=== PATIENT | female | born 1975 | race Caucasian/White ===

== ENCOUNTER 2018-09-15 19:52 | Emergency (ER) | payer BC, OTHER ==
[~2018-09-15] VITALS: Ht 165.1 cm; Wt 101.2 kg
--- NOTE | 2018-09-15 20:06 | NUR ---
ERMD at bedside for eval
--- NOTE | 2018-09-15 20:13 | NUR ---
Patient ambulated with stable gait. A/Ox4. Patient came for c/o LHand digit 3 pain. Patient reported she was moving furniture and the mattress frame fell down on her finger. Pain 9/10. Patient has sensation in the digit, denies any numbness but reports having more dull of a sensation towards the distal portion of the digit. Opposition of fingers restricted to every digit other than the 3rd digit of the left hand. Patient in bed at lowest position, accompanied by relative.
--- NOTE | 2018-09-15 21:04 | NUR ---
MARIA G contacted for xray result
[2018-09-15] MEDS ORDERED: KETOROLAC TROMETHAMINE 30 MG INJ IM ONE (21:15)
[2018-09-15] MEDS ORDERED: KETOROLAC TROMETHAMINE 30 MG INJ ONE (21:18)
--- NOTE | 2018-09-15 21:24 | NUR ---
Patient discharged to home in stable conditon. Written and verbal after care instructions given. Patient verbalizes understanding of instructions. Patient ambulated with stable gait.
[2018-09-15 21:27] VITALS: BP 149/75
== END 2018-09-15 21:41 | disposition home or self-care (01) ==
LOC: ER 19:53
DX: M65.842 Other synovitis and tenosynovitis, left hand (principal); E11.9 Type 2 diabetes mellitus without complications; Z91.040 Latex allergy status
CPT/HCPCS: 73140; 96372; 99283; J1885; A4663